=== PATIENT | male | born 1990 | race Caucasian/White ===

== ENCOUNTER 2018-03-07 16:17 | Emergency (ER) | payer SELFPAY ==
[~2018-03-07] VITALS: Ht 190.5 cm; Wt 79.9 kg
[2018-03-07 16:29] VITALS: BP 137/83
[2018-03-07] MEDS ORDERED: IV NORMAL SALINE 1,000ML 1,000 ML IV SCH (16:42)
--- NOTE | 2018-03-07 17:03 | PHYS DOC ---
Past History Additional Past Medical Histor: aortic coarctation Past Surgical History: Angioplasty Smoking: Cigarettes Additional Smoking Information: 05/20 PPD Alcohol Use: None Drug Use: None Adult General Chief Complaint Chief Complaint: NAUSEA/VOMITING/[facility] HPI Patient is a 27 year old male who presents with complaining of abdominal pain and nausea and vomiting and diarrhea. Patient complaining of sudden onset of epigastric pain since this morning as a constant and sharp pain without radiation and rated his pain 7.5/10. Patient complaining of one episode of vomiting and 2 or 3 episodes of nonbloody diarrhea. Patient states he had a few coughs with bright red blood in his sputum and runny nose. Patient denies fever and chills, sick contact, urinary symptom. Review of Systems Review of Systems Constitutional: Denies fever or chills [] Eyes: Denies change in visual acuity, redness, or eye pain [] HENT: Denies nasal congestion or sore throat [] Respiratory: Denies cough or shortness of breath [] Cardiovascular: No additional information not addressed in HPI [] GI: Reports abdominal pain, nausea, vomiting, diarrhea [] : Denies dysuria or hematuria [] Musculoskeletal: Denies back pain or joint pain [] Integument: Denies rash or skin lesions [] Neurologic: Denies headache, focal weakness or sensory changes [] Endocrine: Denies polyuria or polydipsia [] All other systems were reviewed and found to be within normal limits, except as documented in this note. Allergies Allergies Allergies Coded Allergies Type Severity Reaction Last Updated Verified Penicillins Allergy Unknown 03/07/18 Yes Physical Exam Physical Exam Constitutional: Well developed, well nourished, mild distress, non-toxic appearance. [] HENT: Normocephalic, atraumatic, oropharynx moist, no oral exudates, nose normal. [] Eyes: PERRLA, EOMI, conjunctiva normal, no discharge. [] Neck: Normal range of motion, no tenderness, supple, no stridor. [] Cardiovascular:Heart rate regular rhythm, no murmur [] Lungs & Thorax: Bilateral breath sounds clear to auscultation [] Abdomen: Bowel sounds normal, soft, no tenderness, no masses, no pulsatile masses. [] Skin: Warm, dry, no erythema, no rash. [] Back: No tenderness, no CVA tenderness. [] Extremities: No tenderness, no cyanosis, no clubbing, ROM intact, no edema. [] Neurologic: Alert and oriented X 3, normal motor function, normal sensory function, no focal deficits noted. [] Psychologic: Affect anxious, judgement normal, mood normal. [] Current Patient Data Vital Signs Vital Signs Date Time Temp Pulse Resp B/P (MAP) Pulse Ox O2 Delivery O2 Flow Rate FiO2 03/07/18 16:29 97.5 92 20 99 Room Air EKG EKG [] Radiology/Procedures Radiology/Procedures [] Course & Med Decision Making Course & Med Decision Making Pertinent Labs reviewed. (See chart for details) evaluation of patient in ER showed 27-year-old male patient with complaining of abdominal pain and nausea and vomiting and diarrhea. Patient had unremarkable physical exam and treated with IV fluid and Zofran and Toradol and felt better. Patient had 1 episodes of diarrhea in ER with stool incontinence. She tolerated oral intake and ambulated without problem. Plan discharge patient home to diagnose of viral gastroenteritis. Dragon Disclaimer Dragon Disclaimer This electronic medical record was generated, in whole or in part, using a voice recognition dictation system. Departure Departure: Impression: Primary Impression: Viral gastroenteritis Additional Impression: Tobacco abuse counseling Disposition: HOME, SELF-CARE (at 1755) Condition: IMPROVED Referrals: PCPDIASY (PCP) Patient Instructions: Smoking Cessation, Tips For Success, Viral Gastroenteritis Additional Instructions: Drink plenty of liquids Follow-up with your primary care physician in 3-5 days Return to ER if not getting better Take liquid diet for the next 24 hours Scripts Naproxen (NAPROSYN) 500 Mg Tablet 1 TAB PO BID, #20 TAB Prov: FABIANA MARTIN MD 03/07/18 Ondansetron (ZOFRAN ODT) 4 Mg Tab.rapdis 1 TAB SL Q8HRS, #15 TAB Prov: FABIANA MARTIN MD 03/07/18 Problem Qualifiers FABIANA MARTIN MD Mar 07, 2018 17:03
[2018-03-07 17:11] LABS: BASO % 0 % (0-3); EOS # 0.1 x10^3/uL (0.0-0.7); EOS % 1 % (0-3); HEMATOCRIT 45.6 % (39.0-53.0); HEMOGLOBIN 15.6 g/dL (13.0-17.5); LYMPH # 0.9 x10^3/uL (1.0-4.8); LYMPH % 8 % (24-48); MEAN CORPUSCULAR HEMOGLOBIN 29 pg (25-35); MEAN CORPUSCULAR HGB CONC 34 g/dL (31-37); MEAN CORPUSCULAR VOLUME 84 fL (79-100); MONO # 0.6 x10^3/uL (0.0-1.1); MONO % 5 % (0-9); NEUT # 9.8 x10^3uL (1.8-7.7); NEUT % 86 % (31-73); PLATELET COUNT 268 x10^3/uL (140-400); RED BLOOD COUNT 5.41 x10^6/uL (4.30-5.70); RED CELL DISTRIBUTION WIDTH 13.3 % (11.5-14.5); WHITE BLOOD COUNT 11.4 x10^3/uL (4.0-11.0)
[2018-03-07] MEDS ORDERED: FAMOTIDINE 20 MG/2 ML VIAL IVP ONE (17:15)
[2018-03-07] MEDS ORDERED: ONDANSETRON PF 4 MG/2 ML VIAL. IV ONE (17:15)
[2018-03-07 17:21] LABS: ALBUMIN 3.6 g/dL (3.4-5.0); ALBUMIN/GLOBULIN RATIO 1.1 (1.0-1.7); CALCIUM 8.3 mg/dL (8.5-10.1); CREATININE 0.6 mg/dL (0.7-1.3); GFR 164.2; TOTAL BILIRUBIN 0.5 mg/dL (0.2-1.0); TOTAL PROTEIN 6.9 g/dL (6.4-8.2)
[2018-03-07] MEDS ORDERED: NAPR-683 PO (17:57)
[2018-03-07] MEDS ORDERED: ONDA4TAB10 SL (17:57)
[2018-03-07] MEDS ORDERED: LOPERAMIDE 2 MG CAPSULE PO ONE (18:30)
== END 2018-03-07 18:15 | disposition home or self-care (01) ==
LOC: ER 16:17
DX: A08.4 Viral intestinal infection, unspecified (principal); F17.210 Nicotine dependence, cigarettes, uncomplicated; Z71.6 Tobacco abuse counseling; Z98.61 Coronary angioplasty status; Z88.0 Allergy status to penicillin
CPT/HCPCS: 36415; 80053; 83690; 85025; 85610; 96361; 96374; 96375; 99284; J2405; S0028; J7030

== ENCOUNTER 2018-05-03 01:14 | Emergency (ER) | payer SELFPAY ==
[~2018-05-03] VITALS: Ht 190.5 cm; Wt 75.3 kg
[~2018-05-03 01:14] MED LIST: NAPR-683 PO; ONDA4TAB10 SL
[2018-05-03 01:20] VITALS: BP 164/100
[2018-05-03] MEDS ORDERED: LORazepam 1 MG TABLET PO ONE (02:00)
--- NOTE | 2018-05-03 06:42 | ED.ADGEN ---
Past History Past Medical History: No Pertinent History, Other Additional Past Medical Histor: aortic coarctation Past Surgical History: Angioplasty, Other Smoking: Cigarettes Alcohol Use: Rarely Drug Use: None Adult General Chief Complaint Chief Complaint Multiple medical complaints HPI HPI Patient is a 27-year-old male presents with multiple medical complaints. Patient reports tingling in bilateral extremities lower extremities, around mouth, palpitations, dizziness and pending sense of doom. Patient states symptoms began approximately 30 minutes prior to ED arrival. She repeats them to possibly being poisoned from eating cereal as he was eating cereal when he first noticed symptoms. Denies history of paranoia, psychosis, depression, anxiety or prior panic attack. Patient drove himself to the emergency department. Patient is a current smoker, denies routine drug use. 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 All other review symptoms are negative. All other systems were reviewed and found to be within normal limits, except as documented in this note. Current Medications Current Medications Current Medications Medications (Trade) Dose Ordered Sig/Jas Start Time Stop Time Status Last Admin Dose Admin Lorazepam (Ativan) 2 mg 1X ONCE 05/03/18 02:00 05/03/18 02:19 DC 05/03/18 02:13 2 MG Allergies Allergies Allergies Coded Allergies Type Severity Reaction Last Updated Verified Penicillins Allergy Unknown 03/07/18 Yes Physical Exam Physical Exam Constitutional: Well developed, well nourished, no acute distress. [] HENT: Normocephalic, atraumatic, bilateral external ears normal, oropharynx moist, no oral exudates, nose normal. [] Eyes: PERRLA, EOMI, conjunctiva normal, no discharge. [] Neck: Normal range of motion, no tenderness, supple, no stridor. [] Cardiovascular:Heart rate regular rhythm, no murmur [] Lungs & Thorax: Tachypnea[] Abdomen: Bowel sounds normal, soft, no tenderness, no masses, no pulsatile masses. [] Skin: Warm, dry, no erythema, no rash. [] Back: No tenderness, no CVA tenderness. [] Extremities: No tenderness, no cyanosis, no clubbing, ROM intact, no edema. [] Neurologic: Alert and oriented X 3, normal motor function, normal sensory function, no focal deficits noted. [] Psychologic: Affect anxious, no HI or SI.[] Current Patient Data Vital Signs Vital Signs Date Time Temp Pulse Resp B/P (MAP) Pulse Ox O2 Delivery O2 Flow Rate FiO2 05/03/18 01:20 97.9 91 24 164/100 (121) 100 Room Air EKG EKG [] Radiology/Procedures Radiology/Procedures [] Course & Med Decision Making Course & Med Decision Making Pertinent Labs and Imaging studies reviewed. (See chart for details) [Ativan given for anxiety attack. Recommend home, rest and follow-up with guidance Center.] Final Impression Final Impression []#1 acute anxiety attack Dragon Disclaimer Dragon Disclaimer This electronic medical record was generated, in whole or in part, using a voice recognition dictation system. JAYY DOUGHERTY DO May 03, 2018 06:42
== END 2018-05-03 02:15 | disposition home or self-care (01) ==
LOC: ER 01:14
DX: F41.9 Anxiety disorder, unspecified (principal); F17.210 Nicotine dependence, cigarettes, uncomplicated; Z98.61 Coronary angioplasty status; Z88.0 Allergy status to penicillin
CPT/HCPCS: 99284

== ENCOUNTER 2018-06-15 08:15 | Emergency (ER) | payer SELFPAY ==
[~2018-06-15] VITALS: Ht 190.5 cm; Wt 95.3 kg
[2018-06-15] MEDS: KETOROLAC 60 MG/2 ML VIAL. IM ONE (08:44)
[2018-06-15] MEDS ORDERED: TRAM-48 PO (08:51)
[2018-06-15] MEDS ORDERED: CLIN150C14 PO (08:51)
--- NOTE | 2018-06-15 08:51 | PHYS DOC ---
Past History Past Medical History: No Pertinent History Additional Past Medical Histor: aortic coarctation Past Surgical History: No Surgical History Smoking: Quit Less Than 1 Year Alcohol Use: None Drug Use: None Adult General Chief Complaint Chief Complaint: DENTAL PROBLEM HPI HPI Patient is a 28 year old male who presents with complaining of dental pain. Patient states he had right upper jaw and tooth pain for couple weeks that getting worse since 1 AM and was not able to sleep. Patient complaining of subjective fever and nausea and one episode of vomiting because of pain. Patient rated his pain at 7/10 and states he took some Tylenol without improvement of his pain. The patient is a former smoker. Review of Systems Review of Systems Constitutional: Reports subjective fever Eyes: Denies change in visual acuity, redness, or eye pain [] HENT: Denies nasal congestion or sore throat [] Respiratory: Denies cough or shortness of breath [] Cardiovascular: No additional information not addressed in HPI [] GI: Denies abdominal pain, nausea, vomiting, bloody stools or diarrhea [] : Denies dysuria or hematuria [] Musculoskeletal: Denies back pain or joint pain [] Integument: Denies rash or skin lesions [] Neurologic: Denies headache, focal weakness or sensory changes [] Endocrine: Denies polyuria or polydipsia [] All other systems were reviewed and found to be within normal limits, except as documented in this note. Current Medications Current Medications Current Medications Medications (Trade) Dose Ordered Sig/[facility] Start Time Stop Time Status Last Admin Dose Admin Ketorolac Tromethamine (Toradol Im) 60 mg 1X ONCE 06/15/18 08:45 06/15/18 08:46 UNV Allergies Allergies Allergies Coded Allergies Type Severity Reaction Last Updated Verified Penicillins Allergy Unknown 03/07/18 Yes Physical Exam Physical Exam Constitutional: Well developed, well nourished, mild distress, non-toxic appearance, afebrile, anxious. [] HENT: Normocephalic, atraumatic, bilateral external ears normal, poor dental hygiene, multiple dental caries, right upper jaw and tooth #1 and 2 tenderness with cavity and inflammation , oropharynx moist, no oral exudates, nose normal. [] Eyes: PERRLA, EOMI, conjunctiva normal, no discharge. [] Neck: Normal range of motion, no tenderness, supple, no stridor. [] Cardiovascular:Heart rate regular rhythm, no murmur [] Lungs & Thorax: Bilateral breath sounds clear to auscultation [] Skin: Warm, dry, no erythema, no rash. [] Back: No tenderness, no CVA tenderness. [] Extremities: No tenderness, no cyanosis, no clubbing, ROM intact, no edema. [] Neurologic: Alert and oriented X 3, normal motor function, normal sensory function, no focal deficits noted. [] Psychologic: Affect anxious, judgement normal, mood normal. [] Current Patient Data Vital Signs Vital Signs Date Time Temp Pulse Resp B/P (MAP) Pulse Ox O2 Delivery O2 Flow Rate FiO2 06/15/18 08:30 97.7 104 22 100 Room Air EKG EKG [] Radiology/Procedures Radiology/Procedures [] Course & Med Decision Making Course & Med Decision Making discharge: I've spoken with the patient and/or caregivers. I've explained the patient's condition, diagnosis and treatment plan based on information available to me at this time. I've answered the patient's and/or caregivers questions and addressed any concerns. The patient and/or caregivers have a good understanding the patient's diagnosis, condition and treatment plan as can be expected at this point. Vital signs have been stabilized. The patient's condition is stable for discharge from the emergency department. The patient will pursue further outpatient evaluation with her primary care provider or other designated consulting physician as outlined in the discharge instructions. Patient and/or caregivers are agreeable to this plan of care and follow-up instructions have been explained in detail. The patient and/or caregivers have received these instructions in written format and expressed understanding of these discharge instructions. The patient and her caregivers are aware that if any significant change in condition or worsening of symptoms should prompt him to immediately return to this of the closest emergency department. If an emergent department is not readily available I would encourage him to call 911. Mikal Disclaimer Carlos Eduardoon Disclaimer This electronic medical record was generated, in whole or in part, using a voice recognition dictation system. Departure Departure: Impression: Primary Impression: Dentalgia Additional Impressions: Dental abscess Dental caries Disposition: HOME, SELF-CARE (at 0 845) Condition: STABLE Referrals: PCP,NO (PCP) Patient Instructions: Dental Abscess, Toothache-Brief Additional Instructions: Follow up with a dentist in 5-7 days Follow-up with your primary care physician in 3-5 days Return to ER if not getting better Scripts Clindamycin Hcl (CLINDAMYCIN HCL) 150 Mg Capsule 1 CAP PO QID for infection, #28 CAP Prov: FABIANA MARTIN MD 06/15/18 Tramadol Hcl (ULTRAM) 50 Mg Tablet 50 MG PO PRN Q6HRS PRN for PAIN, #20 TAB Prov: FABIANA MARTIN MD 06/15/18 Problem Qualifiers FABIANA MARTIN MD Jun 15, 2018 08:51
[2018-06-15 09:14] VITALS: BP 160/88
== END 2018-06-15 09:15 | disposition home or self-care (01) ==
LOC: ER 08:15
DX: K04.7 Periapical abscess without sinus (principal); K02.9 Dental caries, unspecified; Z87.891 Personal history of nicotine dependence; Z88.0 Allergy status to penicillin
CPT/HCPCS: 96372; 99283; J1885

== ENCOUNTER 2018-11-19 22:56 | Emergency (ER) | payer SELFPAY ==
[~2018-11-19] VITALS: Ht 190.5 cm; Wt 75.3 kg
[~2018-11-19 22:56] MED LIST changes: +CLIN150C14 PO; +TRAM-48 PO
--- NOTE | 2018-11-19 23:23 | PHYS DOC ---
Past History Past Medical History: Bipolar Additional Past Medical Histor: aortic coarctation (LATOYA MULLIGAN MD) Past Surgical History: No Surgical History (LATOYA MULLIGAN MD) Smoking: Quit Less Than 1 Year Alcohol Use: None Drug Use: None (LATOYA MULLIGAN MD) Adult General HPI HPI Patient is a 28-year-old male who presents to the emergency department for evaluation. He states he has a history of bipolar disorder, and is supposed to be taking Seroquel, Klonopin 1 mg 3 times a day, and gabapentin, but recently ran out of his medications. He states his father in August, and he has been having difficulty coping with this. He states he is seeing things, mainly flashes of light, and is feeling suicidal. He states he desires to walk in front of traffic and his life. He states his whole family is falling apart. He denies any drug use of than some occasional marijuana. He denies any other physical complaints at this time. He states he recently ran out of his medications which is the cause of his crisis. He states his medications were prescribed a month ago when he was released from a mental health Hospital in [facility]. Patient is willing to undergo mental health hospitalization. (LATOYA MULLIGAN MD) Review of Systems Review of Systems Constitutional: Denies fever or chills [] Eyes: Denies change in visual acuity, redness, or eye pain [] HENT: Denies nasal congestion or sore throat [] Respiratory: Denies cough or shortness of breath [] Cardiovascular: The patient denies any shortness of breath, chest pain, palpitations, or orthopnea[] GI: Denies abdominal pain, nausea, vomiting, bloody stools or diarrhea [] : Denies dysuria or hematuria [] Musculoskeletal: Denies back pain or joint pain [] Integument: Denies rash or skin lesions [] Neurologic: Denies headache, focal weakness or sensory changes [] Endocrine: Denies polyuria or polydipsia [] All other systems were reviewed and found to be within normal limits, except as documented in this note. (LATOYA MULLIGAN MD) Allergies Allergies Allergies Coded Allergies Type Severity Reaction Last Updated Verified Penicillins Allergy Unknown 03/07/18 Yes (LATOYA MULLIGAN MD) Physical Exam Physical Exam PHYSICAL EXAM: CONSTITUTIONAL: Well developed, well nourished HEAD: normocephalic, atraumatic EENT: PERRL, EOMI. Conjunctivae normal color, sclerae non-icteric; moist mucous membranes. NECK: Supple, non-tender; no meningismus. LUNGS: Lungs CTA, breathing even and unlabored. Normal air movement. HEART: Regular rate and rhythm, no murmur CHEST: No deformity; non-tender ABDOMEN: The abdomen is soft, and non-tender, no masses or bruits. EXTREM: Normal ROM; no deformity, no calf tenderness. Normal pulses palpable in all extremities. There is no pedal edema. SKIN: No rash; no diaphoresis NEURO: Alert; normal speech and cognition; CN's grossly intact; strength grossly intact without focal deficit. BACK: No CVA TTP. PSYCHIATRIC: The patient does exhibit some mildly pressured speech. Voices suicidal ideation. Does not appear to be actively psychotic. (LATOYA MULLIGAN MD) EKG EKG Normal sinus rhythm a rate of 76 beats for minute, normal axis, normal intervals, nonspecific ST/T changes are present. [] (LATOYA MULLIGAN MD) Radiology/Procedures Radiology/Procedures [] (LATOYA MULLIGAN MD) Course & Med Decision Making Course & Med Decision Making Pertinent Labs and Imaging studies reviewed. (See chart for details) []3:00 AM: Soon after the patient's arrival he became more combative and agitated, exhibiting aggressive behavior, not necessarily towards staff, but punching the cuevas and throwing things in the room in his agitation. He was agreeable to take medication for his symptoms, and was given Geodon. He is now sleeping comfortably. He is too sleepy to undergo a mental health assessment at this time, but this will be performed as soon as the patient is awakened. The patient will need to be admitted to the hospital for psychiatric stabilization. He is medically stable for psychiatric admission at this time. 6:00 Pt care[address] over to dr chance at shift change, pending final disposition. Report given. (LATOYA MULLIGAN MD) Course & Med Decision Making The patient woke up around 8 AM and was requesting more medications because the voices came back. We explained to him the need to stay awake for his psychiatric evaluation. He was still falling asleep part of the time. After a while he stated he could stay awake. We did the video psych evaluation. She concluded that he was not awake enough to complete this evaluation. The patient again was asking for medication. He attempted to take the blood pressure cuff and wrapped around his neck. We removed it from the room. No injury occurred as a result. I give the patient additional 10 mg of Geodon IM. Later I gave him an additional 1 mg of Ativan by mouth. He has been calm and cooperative or sleep the rest of the day. I'm turning care over to Dr. Bender at 1800. Placement for the patient is still pending. 11/21/18 We could not find a psychiatric facility that was willing to take the patient. We requested that he be rescreened by the counselor through the computer. She talked with the patient again and told him that she felt that he should be made involuntary that when he didn't go to osteotomy. After she got off the video screen, the patient is very happy with this. He does not want to go to us why me. He now wants to sign out AMA. We tried to convince the patient that hospital visit at hospital is no reason for him to leave. He considered it for a few minutes, but then insisted that he wanted to leave. We did not have any physical documentation stating that the patient is an involuntary hold. I asked him specifically if he was given hurt himself or someone else and he said no. We told him that he was supposed to placed in an involuntary hold and the patient did not care. He grabbed his stuff and wanted to leave. I tried to convince him to get one more injection of Geodon before she left, but the patient declined. The patient signed AMA paperwork and then left. He came back briefly to get more of his stuff. The local Police Department was called. We informed them of the intent of the behavioral health expert. We also stressed that we were unable to physically restrain the patient against his will due to lack of documentation. The patient made across the street safely and disappeared from our security cameras. The Police Department was left to decide if they would go after the patient or not. (JAYY CHANCE DO) Course & Med Decision Making Impression: 1. Suicidal ideation 2. Depression 3. Hallucinations and delusions 4. [id number]-ywdox finger laceration and left knee abrasions 1800- Watching TV 1900- Watching TV and eating. - Still awaiting placement. 2099- Pt. has become much more agitated and anxious. + Hallucinations. Requesting meds. Still awaiting placement. 2114- Re- check on waiting lists. May be able to have placement at shift change in the morning. Pt. requested exam of index finger and knee on Lt. Does have old laceration of index finger that appears infected and few small abrasion of knee that are cellulitic. Will tx. with antibiotic ointment and Bactrim. Will continue Geodon 20- to 40 mg po bid for hallucination and Ativan prn for severe agitation. 2200- Asleep 2300 - Asleep 0015- Asleep 0115 -Asleep 0216- Asleep 0330 -Asleep 0455- Asleep, some restlessness. 0530- Asleep Check out to Dr. Alford- at shift change, he will make disposition of pt. (CHAN BENDER MD) Dragon Disclaimer Dragon Disclaimer This electronic medical record was generated, in whole or in part, using a voice recognition dictation system. (LATOYA MULLIGAN MD) Departure Departure: Impression: Primary Impression: Bipolar 1 disorder Additional Impression: Suicidal ideations Referrals: PCP,DAISY (PCP) Scripts Sulfamethoxazole/Trimethoprim (BACTRIM DS TABLET) 1 Each Tablet 1 TAB PO BID for cellulitis, #14 TAB Prov: CHAN BENDER MD 11/20/18 Problem Qualifiers LATOYA MULLIGAN MD Nov 19, 2018 23:23 JAYY CHANCE DO Nov 20, 2018 17:49 CHAN BENDER MD Nov 20, 2018 19:47
[2018-11-19] MEDS ORDERED: clonazePAM 1 MG TABLET PO ONE (23:30)
--- NOTE | 2018-11-19 23:33 | EKG ---
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
[2018-11-19 23:48] LABS: BASO # 0.1 x10^3/uL (0.0-0.2); BASO % 1 % (0-3); EOS # 0.3 x10^3/uL (0.0-0.7); EOS % 4 % (0-3); HEMATOCRIT 42.6 % (39.0-53.0); HEMOGLOBIN 14.4 g/dL (13.0-17.5); LYMPH # 2.1 x10^3/uL (1.0-4.8); LYMPH % 27 % (24-48); MEAN CORPUSCULAR HEMOGLOBIN 29 pg (25-35); MEAN CORPUSCULAR HGB CONC 34 g/dL (31-37); MEAN CORPUSCULAR VOLUME 85 fL (79-100); MONO # 0.6 x10^3/uL (0.0-1.1); MONO % 8 % (0-9); NEUT # 4.7 x10^3uL (1.8-7.7); NEUT % 61 % (31-73); PLATELET COUNT 312 x10^3/uL (140-400); RED BLOOD COUNT 5.02 x10^6/uL (4.30-5.70); RED CELL DISTRIBUTION WIDTH 13.4 % (11.5-14.5); WHITE BLOOD COUNT 7.7 x10^3/uL (4.0-11.0)
[2018-11-19 23:54] LABS: BACTERIA,URINE 0 /HPF (0-FEW); BILIRUBIN,URINE NEG (NEG); CLARITY,URINE CLEAR; COLOR,URINE YELLOW; GLUCOSE,URINE NEG (NEG); NITRITE,URINE NEG (NEG); RBC,URINE 0 /HPF (0-2); SQUAMOUS EPITHELIAL CELL,UR OCC /LPF; UROBILINOGEN,URINE 0.2 mg/dL (0.2 mg/dL); WBC,URINE OCC /HPF (0-4)
[2018-11-19 23:58] LABS: ALBUMIN 4.2 g/dL (3.4-5.0); CALCIUM 9.1 mg/dL (8.5-10.1); CREATININE 0.7 mg/dL (0.7-1.3); DIRECT BILIRUBIN 0.2 mg/dL (0.0-0.2); GFR 136.3; POTASSIUM 3.9 mmol/L (3.5-5.1); SALIC 1.1 mg/dL (2.8-20.0); TOTAL BILIRUBIN 0.5 mg/dL (0.2-1.0); TOTAL PROTEIN 7.9 g/dL (6.4-8.2)
[2018-11-19 23:58] LABS: BARBITURATES NEG (NEG); BENZODIAZEPINES NEG (NEG); CANNABINOIDS POS (NEG); COCAINE NEG (NEG); METHADONE NEG (NEG); OPIATES POS (NEG); PHENCYCLIDINE NEG (NEG)
[2018-11-19 23:59] LABS: ACETAMIN < 2.0 mcg/mL (10-30); ETHANOL 44 mg/dL (0-10)
[2018-11-19 23:59] LABS: AMPHETAMINE/METHAMPHETAMINE POS (NEG)
[2018-11-20] MEDS ORDERED: LORazepam 1 MG TABLET PO ONE ×3 (10:30→21:00)
[2018-11-20] MEDS ORDERED: ZIPRASIDONE IM 20 MG VIAL. IM ONE ×3 (10:30→15:00)
[2018-11-20] MEDS ORDERED: diphenhydrAMINE HCL 25 MG CAPSULE PO ONE (21:00)
[2018-11-20] MEDS: ZIPRASIDONE 40 MG CAPSULE. PO SCH (21:23)
[2018-11-20] MEDS ORDERED: SULF1TAB24 PO (21:35)
[2018-11-20] MEDS ORDERED: BACITRACIN ZINC TOPICAL OINT PACKET. TP ONE (21:45)
[2018-11-20] MEDS ORDERED: SMZ/TMP 800/160MG TABLET. PO ONE (21:45)
[2018-11-21] MEDS: ZIPRASIDONE 40 MG CAPSULE. PO SCH (07:23)
[2018-11-21] MEDS ORDERED: LORazepam 1 MG TABLET ONE (07:43)
[2018-11-21 07:59] VITALS: BP 117/74
[2018-11-21] MEDS ORDERED: LORazepam 1 MG TABLET PO ONE (08:00)
[2018-11-21] MEDS ORDERED: ZIPRASIDONE IM 20 MG VIAL. IM ONE ×2 (12:54→13:00)
== END 2018-11-21 13:01 | disposition left against medical advice (07) ==
LOC: EEVIPCON 22:56 → ER 22:56
DX: S61.211A Laceration without foreign body of left index finger without damage to nail, initial encounter (principal); S80.212A Abrasion, left knee, initial encounter; F31.9 Bipolar disorder, unspecified; L03.012 Cellulitis of left finger; R45.851 Suicidal ideations; F22 Delusional disorders; F12.90 Cannabis use, unspecified, uncomplicated; Z87.891 Personal history of nicotine dependence; Z88.0 Allergy status to penicillin; X58.XXXA Exposure to other specified factors, initial encounter; Y93.89 Activity, other specified; Y92.89 Other specified places as the place of occurrence of the external cause; Y99.8 Other external cause status
CPT/HCPCS: 36415; 80048; 80076; 80307; 80329; 81001; 85025; 93005; 96372; 99285; G0480; J3486; 82003

== ENCOUNTER 2019-01-29 21:03 | Emergency (ER) | payer SELFPAY ==
[~2019-01-29] VITALS: Ht 190.5 cm; Wt 81.2 kg
[~2019-01-29 21:03] MED LIST changes: +SULF1TAB24 PO
[2019-01-29] MEDS ORDERED: MVI, ADULT NO.4 WITH VIT K 10 ML, FOLIC ACID SYRINGE for ER 1 MG, THIAMINE INJ 100 MG i... IV ONE ×4 (22:00)
--- NOTE | 2019-01-29 22:00 | EKG ---
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
[2019-01-29 22:35] LABS: BASO # 0.1 x10^3/uL (0.0-0.2); BASO % 1 % (0-3); EOS # 0.2 x10^3/uL (0.0-0.7); EOS % 2 % (0-3); HEMATOCRIT 46.5 % (39.0-53.0); LYMPH # 2.3 x10^3/uL (1.0-4.8); LYMPH % 32 % (24-48); MEAN CORPUSCULAR HEMOGLOBIN 29 pg (25-35); MEAN CORPUSCULAR HGB CONC 35 g/dL (31-37); MEAN CORPUSCULAR VOLUME 84 fL (79-100); MONO # 0.6 x10^3/uL (0.0-1.1); MONO % 8 % (0-9); NEUT # 4.1 x10^3uL (1.8-7.7); NEUT % 57 % (31-73); PLATELET COUNT 286 x10^3/uL (140-400); RED BLOOD COUNT 5.52 x10^6/uL (4.30-5.70); RED CELL DISTRIBUTION WIDTH 13.7 % (11.5-14.5); WHITE BLOOD COUNT 7.2 x10^3/uL (4.0-11.0)
[2019-01-29 22:56] LABS: ALBUMIN 4.5 g/dL (3.4-5.0); CREATININE 1.1 mg/dL (0.7-1.3); DIRECT BILIRUBIN 0.2 mg/dL (0.0-0.2); GFR 80.9; MAGNESIUM 1.9 mg/dL (1.8-2.4); POTASSIUM 3.5 mmol/L (3.5-5.1); TOTAL BILIRUBIN 0.8 mg/dL (0.2-1.0); TOTAL PROTEIN 8.1 g/dL (6.4-8.2)
--- NOTE | 2019-01-29 23:28 | RAD ---
CHEST PA LATERAL INDICATION: Chest pain. COMPARISON STUDY: 01/07/2010. FINDINGS: Lungs: Normal lung volume. No pulmonary mass or consolidation. The tracheobronchial tree and hilar structures are normal. Pleura: No pleural effusion or pneumothorax. Heart and Mediastinum: The cardiomediastinal silhouette is normal. The great vessels of the thorax are normal. Bones and Soft Tissues: The bones and soft tissues are within normal limits. IMPRESSION: No acute cardiopulmonary process. Electronically signed by: Bentley Pearson MD (01/29/2019 11:25 PM) [facility]
[2019-01-29 23:43] LABS: SEDIMENTATION RATE 2 (0-15)
[2019-01-30 00:20] VITALS: BP 130/76
[2019-01-30] MEDS ORDERED: TRAZ-120 PO (00:50)
[2019-01-30] MEDS ORDERED: QUET100T4 PO (00:50)
[2019-01-30] MEDS ORDERED: CLON0.5T PO (00:50)
[2019-01-30] MEDS ORDERED: GABA-585 PO (00:50)
[2019-01-30 00:59] LABS: BARBITURATES NEG (NEG); BENZODIAZEPINES POS (NEG); CANNABINOIDS POS (NEG); COCAINE NEG (NEG); METHADONE NEG (NEG); OPIATES POS (NEG); PHENCYCLIDINE NEG (NEG)
[2019-01-30 01:00] LABS: AMPHETAMINE/METHAMPHETAMINE POS (NEG)
[2019-01-30] MEDS ORDERED: GABAPENTIN 100 MG CAPSULE. PO ONE ×2 (01:00→02:00)
[2019-01-30] MEDS ORDERED: traZODone 50 MG TABLET. PO ONE ×2 (01:00→02:00)
[2019-01-30] MEDS ORDERED: QUEtiapine 100 MG TABLET. PO ONE (01:00)
[2019-01-30] MEDS ORDERED: QUEtiapine 50 MG TABLET. PO ONE (01:00)
[2019-01-30] MEDS ORDERED: clonazePAM 1 MG TABLET PO ONE (01:00)
[2019-01-30 01:08] LABS: CLARITY,URINE CLEAR; COLOR,URINE AMBER
[2019-01-30 01:09] LABS: BACTERIA,URINE 0 /HPF (0-FEW); BILIRUBIN,URINE NEG (NEG); GLUCOSE,URINE NEG (NEG); NITRITE,URINE NEG (NEG); RBC,URINE OCC /HPF (0-2); UROBILINOGEN,URINE 1 mg/dL (0.2 mg/dL); WBC,URINE RARE /HPF (0-4)
[2019-01-30] MEDS ORDERED: clonazePAM 1 MG TABLET PO PRN (01:45)
== END 2019-01-30 01:15 | disposition home or self-care (01) ==
LOC: ER 21:03
DX: F41.9 Anxiety disorder, unspecified (principal); F22 Delusional disorders; F20.9 Schizophrenia, unspecified; F31.9 Bipolar disorder, unspecified; Z87.891 Personal history of nicotine dependence; F12.90 Cannabis use, unspecified, uncomplicated; F15.90 Other stimulant use, unspecified, uncomplicated; Z88.0 Allergy status to penicillin; Z88.8 Allergy status to other drugs, medicaments and biological substances
CPT/HCPCS: 36415; 71046; 80048; 80076; 80307; 81001; 82550; 83690; 83735; 83880; 84443; 84484; 85025; 85610; 85651; 85730; 93005; 96365; 99285; G0480; J7120